=== PATIENT | male | born 1940 | race Caucasian/White ===

== ENCOUNTER 2024-01-08 19:21 | Observation (INO) | payer MEDICARE, SELFPAY ==
[2024-01-08] VITALS (7 sets, daily range): BP systolic 137–176; BP diastolic 67–122; BMI 22.8; BMI 22.7
[2024-01-08 08:29] LABS: % Basophils 0.3 % (0-2); % Eosinophils 0.9 % (0-6); % Immature Granulocytes 0.1 % (0-0.5); % Lymphocytes 11.4 % (20.5-51.1); % Monocytes 6.4 % (1.7-9.3); % Neutrophils 80.9 % (42.2-75.2); Absolute Eosinophils 0.1 10^3/uL (0-0.7); Absolute Lymphocytes 0.9 10^3/uL (1.2-3.4); Absolute Monocytes 0.5 10^3/uL (0.1-0.6); Absolute Neutrophils 6.4 10^3/uL (1.4-6.5); Hematocrit 40.7 % (39.0-52.0); Hemoglobin 14.1 g/dL (13.0-18.0); Mean Corp Hgb Conc. 34.6 g/dL (33.0-37.0); Mean Corpuscular Hgb 33.3 pg (27.0-31.0); Mean Platelet Volume 11.3 fL (7.4-10.4); Nucleated Red Blood Cells % 0 % (-); Platelet Count 165 10^3/uL (130-400); Red Blood Cell Count 4.24 10^6/uL (4.70-6.10); Red Cell Dist. Width 12.7 % (11.5-14.5); White Blood Cell Count 7.8 10^3/uL (4.8-10.8)
[2024-01-08 08:42] LABS: ALT (SGPT) 25 U/L (0-50); AST (SGOT) 25 U/L (17-59); Albumin 4.4 g/dl (3.5-5.0); Alkaline Phosphatase 74 U/L (38-126); Blood Urea Nitrogen 22 mg/dl (9-20); Carbon Dioxide 22 mmol/L (22-30); Chloride 103 mmol/L (98-107); Estimated Creatinine Clearance 68 ml/min; Glucose 125 mg/dl (70-99); Potassium 4.1 mmol/L (3.5-5.1); Sodium 140 mmol/L (135-145); Total Protein 6.5 g/dl (6.3-8.2); eGFR > 60.00
[2024-01-08 08:53] LABS: NT-proBNP 6080 pg/ml; Troponin I 0.019 ng/ml
--- NOTE | 2024-01-08 09:40 | ED.GENMED ---
History of Present Illness
General
Chief Complaint: Chest Pain
Time Seen by Provider: 01/08/24 07:44
History of Present Illness
History of Present Illness:
83-year-old male with history of hypertension, history of pacemaker, hyperlipidemia presenting to the emergency department for alleged chest pain. Patient presents from nursing facility where patient had been complaining of chest pain. However, on
arrival to the hospital patient denies any acute complaints. He denies any chest pain or difficulty breathing. He denies any abdominal pain. He denies any cough or fever. Patient does have some baseline dementia. No additional symptoms reported
at this time
Phy Exam
Physical Exam
Physical Exam:
General: Well-appearing, no clinical signs of dehydration, nontoxic and in no acute distress
HEENT: protecting airway
Neck: appears supple
CV: Normal heart rate, regular rhythm, no evidence of cyanosis
Resp: No accessory muscle use, no increased work of breathing, lungs clear to auscultation bilaterally
Abd: Soft and non-distended, no tenderness to palpation, normal bowel sounds
Extremities: No deformities, no swelling, no erythema, pulses and sensation intact
Neuro: alert, no focal neurologic deficit
: deferred
Rectal: deferred
Psych: Normal affect
Skin: Intact
Scores
Heart Score for Chest Pain Patients
STEMI patient?: No
History: Slightly or Non-Suspicious
ECG: Nonspecific Repolarization
Age: >/= 65 years
Risk Factors: >/= 3 Risk Factors or History of CAD
Troponin: >1 - <3 x Normal Limit
Heart Score for Chest Pain Patients: 6
Heart Score Risk: 20.3% MACE over next 6 weeks
Course
Orders/Labs/Results
Orders:
Orders
01/08/24 07:47
EKG [Electrocardiogram (*1)] Urgent
Reason for Study: Chest Pain
EKG- Treatment ONCE
01/08/24 08:20
Complete Blood Count/With Diff Urgent
Comprehensive Metabolic Panel Urgent
NT-proBNP Urgent
Troponin I Urgent
01/08/24 09:13
CR Chest - 2 Views Urgent
Comment:
Reason For Exam: chest pain
01/08/24 Lunch
Regular
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
01/08/24 11:41
Troponin I Urgent
01/08/24 14:33
Troponin I Urgent
01/08/24 15:46
CARDIOLOGY CONSULT Routine
Consulting Provider: Constantine Garza
Was physician already notified: Yes
Reason for consult: hx chest pain, increasing troponin
01/08/24 18:31
Admit/Transfer Patient As Directed
Co-Sign Provider:
Level of Care: Observation services
Assign to:: Telemetry
Physician / Group: Keyla Redman
Diagnosis: Chest pain r/o ACS
Reason for Telemetry: Chest Pain syndromes
Date to Stop Telemetry: 01/10/24
Time to Stop Telemetry: 11:00
01/08/24 18:32
PRN Pain Medication Management As Directed
May give lesser potent ordered pain med per pt: Yes
preference::
Protocol:: Medication orders for pain may be administered in a
manner that supports deferring to patient preference
when the pt is:
- Requesting an ordered lesser potent pain medication.
Least to most potent pain medications are defined
as: acetaminophen < NSAID < tramadol < opioids
(morphine, oxycodone, hydromorphone).
- Requesting a lesser dose of the same medication IF
ORDERED.
- Requesting a less intrusive route of administration
if both routes are prescribed by the provider (PO <
IV).
01/08/24 18:36
Code Status As Directed
Resuscitation Status: Do not resuscitate
Reached after discussion with pt or family/Healthcare POA: Yes
DNR Bracelet Application ONCE
01/08/24 19:09
COVID-19 Antigen Routine
Source: Nasal Swab
Troponin I Q6H
01/08/24 19:[address] Non Medication Order As Directed
Physician Order: apply medsitter
Above order entered?: Yes
01/08/24 20:10
Acetaminophen [Tylenol] 650 mg PO Q4HPRN PRN
Bisacodyl [Dulcolax] 10 mg RECTAL H02LIAL PRN
Docusate W/Senna [Senokot-S] 1 tablet PO BIDPRN PRN
HydrALAZINE [Apresoline] 5 mg IV Q4HPRN PRN
Metoprolol [Lopressor] 5 mg IV Q4HPRN PRN
Polyethylene Glycol Powder [Miralax] 17 grams PO DAILYPRN PRN
Risperidone Disintegrating [Risperdal M-Tab (Orally Disintegrating)] 0.25 mg PO BIDPRN PRN
01/08/24 20:10
Activity As Directed
Activity Level: With Assistance
Intake/ Output As Directed
Frequency: Per unit guidelines
Precautions As Directed
Type of Precautions: Other
Comment: fall precautions
Vital Signs As Directed
Frequency: Per unit guidelines
Weight As Directed
Frequency: Daily
Ot Eval And Treat Routine
Pt Eval And Treat Routine
Activity Level: With Assistance
01/08/24 20:26
Trazodone [Desyrel] 25 mg PO HSPRN PRN
01/08/24 20:30
Apixaban [Eliquis] 5 mg PO BID
Losartan [Cozaar] 50 mg PO BID
Metoprolol Xl [Toprol Xl] 50 mg PO BID
01/08/24 23:23
Troponin I Q6H
01/09/24 05:09
Basic Metabolic Panel IN AM
Cardiovascular Evaluation IN AM
Complete Blood Count/No Diff IN AM
Magnesium IN AM
01/09/24 08:00
Amlodipine [Norvasc] 5 mg PO DAILY
Aspirin Low Dose EC [Aspir Low (Enteric Coated)] 81 mg PO DAILY
Cholecalciferol (Vitamin D3) [VITAMIN D3 (cholecalciferol)] 50 mcg PO DAILY
FOLic ACID [Folvite] 0.8 mg PO DAILY
ISOSORBIDE MONOnitrate ER [Imdur (Extended Release)] 30 mg PO DAILY
Rosuvastatin Calcium [Crestor] 20 mg PO DAILY
Sertraline HCl [Zoloft] 50 mg PO DAILY
01/10/24 06:00
Basic Metabolic Panel IN AM
Complete Blood Count/No Diff IN AM
Magnesium IN AM
01/10/24 11:00
DC Protocol for Telemetry ONCE
01/11/24 06:00
Basic Metabolic Panel IN AM
Complete Blood Count/No Diff IN AM
Magnesium IN AM
01/12/24 06:00
Basic Metabolic Panel IN AM
Complete Blood Count/No Diff IN AM
Magnesium IN AM
01/13/24 06:00
Basic Metabolic Panel IN AM
Complete Blood Count/No Diff IN AM
Magnesium IN AM
01/14/24 06:00
Basic Metabolic Panel IN AM
Complete Blood Count/No Diff IN AM
Magnesium IN AM
01/15/24 06:00
Basic Metabolic Panel IN AM
Complete Blood Count/No Diff IN AM
Magnesium IN AM
Abnormal Lab Results
01/08/24 01/08/24 01/08/24
08:20 14:33 19:09
RBC 4.24 L 10^6/uL
(4.70-6.10)
MCV 96.0 H fL
(80.0-94.0)
MCH 33.3 H pg
(27.0-31.0)
MPV 11.3 H fL
(7.4-10.4)
Absolute Lymphs (auto) 0.9 L 10^3/uL
(1.2-3.4)
Neutrophils % 80.9 H %
(42.2-75.2)
Lymphocytes % 11.4 L %
(20.5-51.1)
BUN 22 H mg/dl
(9-20)
Glucose 125 H mg/dl
(70-99)
Troponin I 0.044 H* D ng/ml 0.050 H* ng/ml
01/08/24 08:20
01/08/24 08:20
Vital Signs
Initial and Last Documented VS:
Initial Vital Signs
Temp Pulse Resp BP Pulse Ox
97.5 F 69 26 145/89 99
01/08/24 07:49 01/08/24 07:49 01/08/24 07:49 01/08/24 07:49 01/08/24 07:49
Last Documented Vital Signs
Temp Pulse Resp BP Pulse Ox
98 F 61 16 133/60 97
01/09/24 11:12 01/09/24 11:12 01/09/24 11:12 01/09/24 11:12 01/09/24 11:12
MDM/Problems Addressed
MDM/Problems Addressed:
83-year-old male with history of hypertension, hyperlipidemia, pacemaker presenting to the emergency department for chest pain from nursing facility. Vital signs within normal limits.
On exam, patient well-appearing, no acute distress or discomfort. Patient is currently asymptomatic. Unremarkable cardiac and pulmonary exam. No focal abnormal lung sounds. No lower extremity edema. Unclear etiology of patient's visit. EKG
obtained, paced rhythm. Will interrogate to ensure no abnormal events. Will screen with laboratory analysis and chest x-ray imaging and to continue to closely monitor.
09:35 - Patient's BNP is elevated, however clear baseline. No signs of volume overload. Will screen with chest x-ray imaging. Troponin is detectable, however within normal limits. Will send second troponin given that patient is a limited
historian. Currently remains asymptomatic. Pacemaker was interrogated, no events or shocks.
11:50 -chest x-ray without any sign of pulmonary edema or cardiopulmonary disease. Second troponin has increased, however still within normal limits. Patient remains asymptomatic, however positive delta between troponin value discussed with
cardiology, will check a third troponin
15:20 -third troponin continues to rise. For this reason we will continue to monitor and trend troponins.
*EKG
Interpreted by ED Provider?: Yes
EKG Intrepretation Date: 01/08/24
EKG Intrepretation Time: 09:42
Interpretation: normal
Comparison EKG: no comparison EKG present
Heart Rate: 68
Rate: normal
Rhythm: PVC's and ventricular paced
[place]: normal axis
Ischemia: non-specific ST changes
*Critical Care Note
Total Time (30-74mins, 75-104mins- exclusive of procedures): Not Applicable
ED Attending Note
-
Portions of this chart may have been created with voice recognition software.� Occasional wrong word or��sound alike� substitutions may have occurred due to the inherent limitations of voice recognition software.
Discharge Plan
Departure
Patient Disposition: Admit
Date of Disposition: 01/08/24
Time of Disposition: 15:26
Presentation/result/management discussed w/ accepting MD/DO: Hospitalist
Patient with high blood pressure during this ER visit?: No
Condition: Good
Discharge Problem:
Chest pain
Interventions
Interventions:
*Risk Screen - Suicide Last Done: 01/08/24 07:49
*General Assessment Last Done: 01/08/24 07:53
*Neglect/Abuse Screening Last Done: 01/08/24 07:53
ED- Fall Risk Assessment Last Done: 01/08/24 07:53
*ED COVID-19 Vaccine History Last Done: 01/08/24 20:27
*Nursing Disposition Last Done: 01/08/24 20:19
ED- Cardiac Assessment Last Done: 01/08/24 07:53
Discharge Date and Time
Discharge Date/Time: 01/08/24 20:20
[2024-01-08 12:12] LABS: Troponin I 0.031 ng/ml
[2024-01-08 15:20] LABS: Troponin I 0.044 ng/ml
--- NOTE | 2024-01-08 15:42 | HPS.HSE ---
Family Physician
-
Family Physician: Danielle Soto MD
Chief Complaint
-
Chest pain
History of Present Illness
83M afib Eliquis CAD CABG stents Ischemic Cardiomyopathy CHF s/p AICD/ppm HTN Dementia from [facility] presents for evaluation chest pain. Poor historian, POA Luci at bedside providing history. Reportedly patient was not
himself this morning, reporting chest pain, diaphoretic, shaking. On arrival in ED, however, patient denied any acute complaints including chest pain. VSS. Labs were notable for elevated BNP 6080 (exam Euvolemic) and initially normal troponins
that trended elevated 0.044. Patient consistently chest pain free during ED evaluation
Medical History
Past Medical History
Past Medical History: Reports Other (as above)
Past Surgical History: Reports Other (as above)
Social History
Tobacco: Non-smoker
Alcohol: None
Drug: None
Personal:
Living: Other ([facility])
Employment: Retired
Family History
Family History: Not pertinent (reviewed)
Allergies / Home Medications
Allergies reflects when Allergies were last updated in [email or web address].
Home Medications with original date entered in [email or web address]
Allergy/Medication List:
Allergies
Allergy/AdvReac Type Severity Reaction Status Date / Time
No Known Allergies Allergy Verified 12/10/22 11:28
Home Medications
amlodipine 5 mg tablet 5 mg PO DAILY Blood Pressure 03/16/22
folic acid 800 mcg tablet 0.8 mg PO DAILY Supplement 03/16/22
losartan 100 mg tablet 100 mg PO DAILY Blood Pressure 03/16/22
metoprolol succinate 100 mg tablet,extended release 24 hr 100 mg PO DAILY Heart Failure 03/16/22
rosuvastatin 20 mg tablet 20 mg PO DAILY High Cholesterol 03/16/22
apixaban 5 mg tablet (Eliquis) 5 mg PO BID 01/08/24
aspirin 81 mg tablet,delayed release 81 mg PO DAILY Blood Clot Prevention/Tx 01/08/24
cholecalciferol (vitamin D3) 50 mcg (2,000 unit) capsule (Vitamin D3) 50 mcg PO DAILY Supplement 01/08/24
isosorbide mononitrate 30 mg tablet,extended release 24 hr 30 mg PO DAILY ANGINA 01/08/24
sertraline 50 mg tablet 50 mg PO DAILY Depression 01/08/24
Review of Systems
-
A 12 point ROS was completed and negative except as noted: Yes
Constitutional: Reports Sleep Disturbance (as below)
Physical Exam
Vital Signs
Vital Signs
Temp Pulse Resp BP Pulse Ox
97.5 F 61 19 164/92 99
01/08/24 07:49 01/08/24 10:45 01/08/24 10:45 01/08/24 10:00 01/08/24 10:45
Physical Exam
General: Other (as below)
Laboratory Results
-
01/08/24 08:20
01/08/24 08:20
Laboratory Results
Total Bilirubin 1.0 mg/dl (0.2-1.3) 01/08/24 08:20
AST 25 U/L (17-59) 01/08/24 08:20
ALT 25 U/L (0-50) 01/08/24 08:20
Alkaline Phosphatase 74 U/L (38-126) 01/08/24 08:20
Troponin I 0.044 ng/ml H* D 01/08/24 14:33
Impression/Plan
-
ROS
General: Denies fever chills night sweats unexpected weight loss
Neuro: Denies seizure shaking loss of consciousness dizziness vertigo
Psych: denies depression hallucinations confusion manic episodes
Endocrine: Denies polyuria polydipsia polyphagia heat/cold intolerance
HEENT: Denies blindness visual disturbances epistaxis
Pulmonary: denies coughing hemoptysis sneezing sob dyspnea on exertion
Cardiovascular: denies chest pain palpitations leg swelling
Hematology: denies signs symptoms of anemia easy bruising/bleeding
Gastrointestinal: denies nausea vomiting diarrhea constipation hematemesis hematochezia melena
Genito-Urinary: denies retention incontinence dysuria
Musculoskeletal: denies joint pain weakness
Dermatology: denies rash laceration bruising
Physical Exam
General: No pallor, cyanosis, or jaundice.
HEENT: Throat clear. PERRLA Normocephalic atraumatic hard of hearing
NECK: Supple. No JVD Carotid Bruits
RESPIRATORY: Lungs clear to auscultation. No crackles wheezes stridor
CVS: S1, S2 normal. RRR. No murmur, rub or gallop. palpable right sided cardiac device
ABDOMEN: Soft, non-tender. No distension. BS+/normal.
EXTREMITIES: No peripheral cyanosis or edema.
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 Pleasantly confused cooperative conversant. Memory issues noted (has previously forgotten his birthday per at bedside)
IMPRESSION:
83M afib Eliquis CAD CABG stents Ischemic Cardiomyopathy CHF s/p AICD/ppm HTN Dementia from [facility] unit presents for evaluation chest pain. Poor historian, TRESA Luci at bedside providing history. Reportedly patient was not
himself this morning, reporting chest pain, diaphoretic, shaking. On arrival in ED, however, patient denied any acute complaints including chest pain. VSS. Labs were notable for elevated BNP 6080 (exam Euvolemic) and initially normal troponins
that trended elevated 0.044. Patient consistently chest pain free during ED evaluation
PLAN:
#Chest pain r/o ACS
#Troponin elevation suspect non-mi related
tele observation
currently chest pain free
trend troponin to peak
cardio eval requested, follows Dr. Hunter Epperson
#hx afib
#CAD CABG stents
#Ischemic Cardiomyopathy
#CHF s/p AICD/ppm
#HTN
cont home Eliquis ASA
missed morning meds, Metoprolol XL 100 mg daily and Losartan 100 mg daily both switched to 50 mg BID for now with holding parameters
cont home Amlodipine
#Dementia
#Depression/Anxiety
Cont sertraline
risperdal 0.25mg BIDPRN agitation
Trazodone 25 mg prn sleep
Avoid benadryl/melatonin/ativan likely to worsen confusion delirium dementia patients
medsitter
fall precautions
PT/OT
dvt ppx Eliquis
DNR as patient's TRESA Verma and POL
I spent a total of 76 minutes with the patient or on the floor. More than 50% of this time involved counseling and coordination of care.
[2024-01-08 19:33] LABS: COVID-19 Antigen Negative (Negative)
[2024-01-08] MEDS: COZAAR 50 MG PO (21:47)
[2024-01-08] MEDS: ELIQUIS 5 MG PO (21:47)
[2024-01-08] MEDS: TOPROL XL 50 MG PO (21:48)
[2024-01-08 23:54] LABS: Troponin I 0.048 ng/ml
[2024-01-09] VITALS (7 sets, daily range): BP systolic 129–156; BP diastolic 60–91; PULSE 61; O2SAT 99; BMI 22.7
[2024-01-09 05:35] LABS: Hematocrit 43.6 % (39.0-52.0); Hemoglobin 15.1 g/dL (13.0-18.0); Mean Corp Hgb Conc. 34.6 g/dL (33.0-37.0); Mean Corpuscular Hgb 34.8 pg (27.0-31.0); Mean Corpuscular Volume 100.5 fL (80.0-94.0); Mean Platelet Volume 11.4 fL (7.4-10.4); Platelet Count 162 10^3/uL (130-400); Red Blood Cell Count 4.34 10^6/uL (4.70-6.10); Red Cell Dist. Width 12.8 % (11.5-14.5); White Blood Cell Count 8.5 10^3/uL (4.8-10.8)
[2024-01-09 05:57] LABS: Blood Urea Nitrogen 20 mg/dl (9-20); Calcium 10.1 mg/dl (8.4-10.2); Carbon Dioxide 23 mmol/L (22-30); Chloride 102 mmol/L (98-107); Estimated Creatinine Clearance 61 ml/min; Glucose 107 mg/dl (70-99); HDL Cholesterol 54 mg/dl; LDL Cholesterol, Calculated 64 mg/dl; Potassium 4.1 mmol/L (3.5-5.1); Sodium 143 mmol/L (135-145); Total Cholesterol 134 mg/dl (50-199); Triglyceride 84 mg/dl (10-149); Very Low Density Lipoprotein 16 mg/dl (0-30); eGFR > 60.00
--- NOTE | 2024-01-09 07:16 | W.PN.HOSP.TC ---
Today's Communication/Plan
-
Imdur increased by cardiology
Discharge today
Assessment / Plan
Assessment / Plan
83M afib Eliquis CAD CABG stents Ischemic Cardiomyopathy CHF s/p AICD/ppm HTN Dementia from [facility] presents for evaluation chest pain. Poor historian, POCristian Luci at bedside providing history. Reportedly patient was not
himself this morning, reporting chest pain, diaphoretic, shaking. On arrival in ED, however, patient denied any acute complaints including chest pain. VSS. Labs were notable for elevated BNP 6080 (exam Euvolemic) and initially normal troponins
that trended elevated 0.044. Patient consistently chest pain free during ED evaluation
#Chronic intermittent chest pain
#Troponin elevation suspect non-mi related
Follows Dr. Hunter Epperson
Appreciate cardiology input, recommend increasing Imdur from 30 mg daily to 60 mg daily
Cleared by cardiology for discharge, follow-up with cardiology in the office
#hx afib
#CAD CABG stents
#Ischemic Cardiomyopathy
#CHF s/p AICD/ppm
#HTN
Continue home Eliquis ASA
Continue metoprolol XL 100 mg daily and Losartan 100 mg daily both switched to 50 mg BID for now with holding parameters
Continue home Amlodipine
#Dementia
#Depression/Anxiety
Cont sertraline
risperdal 0.25mg BIDPRN agitation
Trazodone 25 mg prn sleep
Avoid benadryl/melatonin/ativan likely to worsen confusion delirium dementia patients
medsitter
fall precautions
PT/OT
dvt ppx Eliquis
DNR as patient's TRESA Verma and POL
Physical Exam
General: No acute distress
HEENT: Normocephalic, Atraumatic, EOMI, MMM
Respiratory: Clear to Auscultation bilaterally
Cardiac: Normal S1/S2, Regular Rate and Rhythm
GI: Soft, Nontender, Nondistended, Normal Bowel Sounds
Extremities: No Clubbing, Cyanosis, or Edema
Neuro: Pleasantly confused
Psych: Calm, Cooperative
Anticipated Discharge: Today
Subjective/Interval History
-
Date of Service: January 09, 2024
Patient reports intermittent right-sided chest pain. No fever, no vomiting.
Objective Data
-
Labs:
Laboratory Results
01/09/24
05:09
WBC 8.5
Hgb 15.1
Hct 43.6
Plt Count 162
Sodium 143
Potassium 4.1
Chloride 102
Carbon Dioxide 23
BUN 20
Creatinine 1.0
Glucose 107 H
Calcium 10.1
Vital Signs:
Vital Signs
Temp Pulse Resp BP Pulse Ox
97.2 F 62 16 147/85 98
01/09/24 04:11 01/09/24 04:11 01/09/24 04:11 01/09/24 04:11 01/09/24 04:11
I&O
01/08/24 01/09/24 01/10/24
06:59 06:59 06:59
Intake Total 240 / 240
Balance 240 / 240
[2024-01-09] MEDS: FOLVITE 0.8 MG PO (09:18)
[2024-01-09] MEDS: IMDUR (EXTENDED RELEASE) 30 MG PO (09:19)
[2024-01-09] MEDS: CRESTOR 20 MG PO (09:19)
[2024-01-09] MEDS: NORVASC 5 MG PO (09:19)
[2024-01-09] MEDS: TOPROL XL 50 MG PO (09:19)
[2024-01-09] MEDS: ELIQUIS 5 MG PO (09:20)
[2024-01-09] MEDS: COZAAR 50 MG PO (09:20)
[2024-01-09] MEDS: VITAMIN D3 (cholecalciferol) 50 MCG PO (09:21)
[2024-01-09] MEDS: ZOLOFT 50 MG PO (09:21)
[2024-01-09] MEDS: ASPIR LOW (ENTERIC COATED) 81 MG PO (09:21)
--- NOTE | 2024-01-09 09:53 | PTOTSP ---
pt currently demonstrates ability to complete simple ADLs, functional transfers, ambulation with supervision assistance. pt requires cues to initiate tasks, attend to tasks, which is probably close to baseline. pt is also very talkative during the
session. no acute OT needs identified at this time, will sign off.
--- NOTE | 2024-01-09 10:44 | CON.CAR ---
Addendum entered and electronically signed by Constantine Garza MD 01/09/24 13:02:
I saw and examined the patient.
The PRETZEL TWISTER or PA's note was reviewed and I agree with the note.
Comment: General: Awake and confused
Neck: Supple, no JVD, HJR, carotids +2 B/L, no bruits bilaterally.
Heart: Non displaced PMI, RRR, no murmurs, No S3, S4, no rubs.
Lungs: Scattered rhonchi
Abdomen: Normal bowel sounds, soft, non-tender, non-distended.
Extremities: No clubbing, cyanosis or edema bilaterally.
Neuro: Awake and confused
Kemal has a history of CAD status post CABG and PCI while living in [facility], cardiomyopathy with ejection fraction 40-45%, permanent A-fib on chronic Eliquis, hypertension, chronic chest pain. Patient is a poor historian and according to
has chronic chest pain. Patient came to the ER troponins were minimally elevated and was admitted. He is without complaints at present but is confused.
Discussed with patient's . Will continue to treat conservatively. Will increase Imdur and continue Toprol. Stable cardiology status for discharge to nursing facility
Original Note:
Consultation
Consultation Request
Date/Time Consultation Requested: 01/08/24 at 1546
Date/Time Consultation Performed: 01/09/24 at 1047
Requesting Provider: Dr. Perez
Performing Provider: Dr. Garza
Reason for Consultation: Chest pain
Medical History
-
History of Present Illness:
Patient came to ER yesterday morning with complaints of chest pain and was admitted with elevating troponin with consultation to cardiology. Patient lives in the [facility] care section of [facility], but his is in independent living. I called
and talked to his and she reports that patient has chest pain on a daily basis and often grabs to his chest and grabs that his implanted defibrillator and says he has pain. She reports that his episode of pain yesterday happened when she was
not present and that nursing staff sent him to ER. Upon arrival to ER patient said that he did not have chest pain and denied ever having chest pain. 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 In ER his
initial troponin was normal and a second troponin was normal, but was higher than the previous and this prompted the admission. His troponin peaked at 0.05 and trended down. No chest pain throughout this admission. EKG is a paced rhythm. He has
a Biotronik DC ICD in place that was implanted when he is to follow with a manufacturer's representative in [place] around the time of his CABG and PCI. He had a generator change here at 03/2022. No events on his ICD check in the ER yesterday and he is 100%
atrial fibrillation underlying with known permanent atrial fibrillation and is chronically on Eliquis 5 mg BID. Of note back in 04/2023 patient was sent for a stress test for chest pain as noted above. That stress test was abnormal and he was
started on Imdur ER 30 mg daily at that time and it is not clear if he has had much improvement in his daily chest pain since then
PMH:
Abnormal Lexiscan stress test 04/21/23
CAD s/p CABG and PCI while living in [facility]
ICM EF 40-45% by echo 02/18/23
Permanent Afib
Chronic Eliquis OAC
HTN
Past Medical History
Past Medical History: Other (in [facility])
Past Surgical History: Cardiac (CABG and PCI in [place], s/p Biotronik DC ICD with generator change 03/2022) and Other (pyloric stenosis surgery in [place])
Social History
Tobacco: Former Smoker (used to smoke 3 ppd)
Alcohol: None
Drug: None
Personal:
Living: Other (now in the memory care section of [facility])
Family History
Family History: CAD
Allergies / Home Medications
Allergy/AdvReac Type Severity Reaction Status Date / Time
No Known Allergies Allergy Verified 12/10/22 11:28
�Medication �Instructions �Recorded �Confirmed �Type
amlodipine 5 mg tablet 5 mg PO DAILY Blood Pressure 03/16/22 01/08/24 History
folic acid 800 mcg tablet 0.8 mg PO DAILY Supplement 03/16/22 01/08/24 History
losartan 100 mg tablet 100 mg PO DAILY Blood Pressure 03/16/22 01/08/24 History
metoprolol succinate 100 mg 100 mg PO DAILY Heart Failure 03/16/22 01/08/24 History
tablet,extended release 24 hr
rosuvastatin 20 mg tablet 20 mg PO DAILY High Cholesterol 03/16/22 01/08/24 History
apixaban 5 mg tablet (Eliquis) 5 mg PO BID 01/08/24 01/08/24 History
aspirin 81 mg tablet,delayed 81 mg PO DAILY Blood Clot 01/08/24 01/08/24 History
release Prevention/Tx
cholecalciferol (vitamin D3) 50 50 mcg PO DAILY Supplement 01/08/24 01/08/24 History
mcg (2,000 unit) capsule (Vitamin
D3)
isosorbide mononitrate 30 mg 30 mg PO DAILY ANGINA 01/08/24 01/08/24 History
tablet,extended release 24 hr
sertraline 50 mg tablet 50 mg PO DAILY Depression 01/08/24 01/08/24 History
Review of Systems
-
History Source: Patient and Family (talked with by phone)
All other systems: Negative unless noted
Physical Exam
Vital Signs
Temp Pulse Resp BP Pulse Ox
97.9 F 63 16 129/91 96
01/09/24 08:03 01/09/24 09:20 01/09/24 08:03 01/09/24 09:20 01/09/24 08:03
GEN: NAD. Confused and pulled stethoscope off chest during exam, but then allowed exam to continue when stethoscope placed back on chest
HEENT: EOMI, MMM
LUNGS: Clear anterolaterally with poor inspiratory effort
CV: Reg, S1/S2, no murmur
ABD: soft, BS+, NT, ND
EXT: No clubbing, cyanosis, lesions or edema B/L. +2 DP/PT/radial pulses B/L
NEURO: Gross non-focal
SKIN: Warm, dry and pink. No rash
Lab Results
01/09/24 05:09
01/09/24 05:09
Troponin I 0.048 ng/ml H* 01/08/24 23:23
Vib-R-Nifkltnbeqg Pept 6080 pg/ml 01/08/24 08:20
Impression / Plan
-
PCP: Dr. Soto
Cardiology: Dr. Viktor Brown
Impression:
Chest pain
Elevated Troponin
Abnormal Lexiscan stress test 04/21/23
CAD s/p CABG and PCI while living in [facility]
ICM EF 40-45% by echo 02/18/23
Permanent Afib
Chronic Eliquis OAC
HTN
Lexiscan nuclear stress test 04/21/2023: Medium sized area of mildly decreased perfusion that is mildly reversible in the basal anterolateral, basal inferolateral, basal inferior, mid anterolateral, mid inferolateral, mid inferior apical lateral,
apex and apical inferior segments consistent with infarction with residual ischemia in the inferolateral and anterolateral sibley
Echo 02/18/2023: EF 40 to 45%, mild apical hypokinesis, stage III diastolic dysfunction, normal RV size and function, mild MR, moderate eccentric TR with PAP 42 mmHg
Plan:
-Patient came to ER yesterday morning with complaints of chest pain and was admitted with elevating troponin with consultation to cardiology. Patient lives in the [facility] care section of [facility], but his is in independent living. I called
and talked to his and she reports that patient has chest pain on a daily basis and often grabs to his chest and grabs that his implanted defibrillator and says he has pain. She reports that his episode of pain yesterday happened when she was
not present and that nursing staff sent him to ER. Upon arrival to ER patient said that he did not have chest pain and denied ever having chest pain. 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 In ER his
initial troponin was normal and a second troponin was normal, but was higher than the previous and this prompted the admission. His troponin peaked at 0.05 and trended down. No chest pain throughout this admission. EKG is a paced rhythm. He has
a Biotronik DC ICD in place that was implanted when he is to follow with a manufacturer's representative in [place] around the time of his CABG and PCI. He had a generator change here at 03/2022. No events on his ICD check in the ER yesterday and he is 100%
atrial fibrillation underlying with known permanent atrial fibrillation and is chronically on Eliquis 5 mg BID. Of note back in 04/2023 patient was sent for a stress test for chest pain as noted above. That stress test was abnormal and he was
started on Imdur ER 30 mg daily at that time and it is not clear if he has had much improvement in his daily chest pain since then.
-Called and talked with patient's 01/09/24. Chest pain is almost daily for patient. Stress test was abnormal 04/2023, but patient's wishes to pursue medical management. Will increase outpatient dose of Imdur ER to 60 mg daily.
-Cont usual doses of amlodipine 5 mg daily, losartan 50 mg BID and Toprol XL 100 mg daily (although ordered as 50 mg BID this admission).
-Cont aspirin 81 mg daily
-Patient with known permanent Afib that is rate controlled. Cont Eliquis 5 mg BID (age 83, Cre 1.0, wt 75.835 kg)
-Updated patient's egg caser and attending hospitalist that patient's would like to drive him home today and that patient is stable for d/c from a cardiac standpoint.
-77 minutes in face to face time and with chart prep, coordinating with CM and hospitalist attending
[2024-01-09] MEDS: RISPERDAL M-TAB (ORALLY DISINTEGRATING) 0.25 MG PO (11:04)
--- NOTE | 2024-01-09 12:44 | CM ---
Addendum entered by Tanja Ibarra 01/09/24 13:00:
Plan for dc today
Update to spouse and [facility]
Original Note:
CM spoke with Josette Virgil/[facility] at [facility]
Pt is a LTC resident in the memory unit
He ambulates with supervision for correct use of his specialized Parkinsons dementia WW
He requires coaxing and cueing for most ADLs, 1 person assist with back and LEs
PCP- Danielle Soto
Rx- [facility]
PT/OT following- clinicals reviewed
Pt accepted back for admission to the [facility] on dc
Referral to [facility] per request
Call with spouse- ALEXANDER verbally completed
Copy left bedside
Discussion with Rosalind/cardio- signed off
Awaiting dc determination
Referral made to [facility]
Discharge Disposition- return to the [facility] memory care with [facility]- spouse will transport
Phone- [phone] before 3pm/Hanna after 3pm/Yulissa Fax- [phone]
--- NOTE | 2024-01-09 13:08 | VNURNOTE ---
Home Health Liaison spoke to spouse Luci to discuss [facility] nurse/therapy, visits, schedule and homebound status. She is agreeable and understands that visits at home will be 2-3 x per week to assess and teach medical management. [facility] provided spouse
with contact information. She is aware that [facility] will contact them for start of care in 1-2 days after discharge from . She is agreeable to be present for the start of care visit to sign paperwork. [facility] referral completed in [facility].
--- NOTE | 2024-01-09 13:37 | W.DCSUMMARY ---
Discharge Summary
Discharge Data
Date of Admission: 01/08/24
Date of Discharge: 01/09/24
-
Pending Results: No
Hospital Course
Discharge diagnosis:
Chronic chest pain
Coronary artery disease
Permanent atrial fibrillation on Eliquis
Essential hypertension
Ischemic cardiomyopathy
Dementia
Depression/anxiety
Consults: Cardiology
Hospital course:
83-year-old male with a past medical history of coronary artery disease status post CABG and PCI, atrial fibrillation on Eliquis, hypertension, and dementia was placed in observation for chronic chest pain. Patient had a mildly elevated troponin.
He was seen in conjunction with cardiology. Cardiology recommends increasing his Imdur from 30 mg daily to 60 mg daily. Patient is medically stable and cleared by cardiology for discharge. He needs to follow-up with cardiology in the office as
scheduled, as well as his primary care doctor in 1 week.
Disposition: [facility] memory care unit with [facility]
Discharge planning: Required 34 minutes
Discharge Plan
-
Patient Disposition: Home with Home Care
Discharge Diagnosis/Procedures: Chest pain
Condition: Fair
Diet: Low Fat and Low Cholesterol
Activity: As tolerated
Referrals:
Danielle Soto MD [Family Provider] - in one week
Viktor Brown MD [Active] - 02/28/24 9:20 am (You have an appt to see Dr. Viktor Brown at the [place] office on 02/28/24 at 9:20 AM. Please call [phone] if you need to reschedule.)
Additional Discharge Medication Instructions: -Increase Imdur ER (isosorbide mononitrate) to 60 mg (one 60 mg tablet or two 30 mg tablets) once a day
Prescriptions:
New
isosorbide mononitrate 60 mg tablet extended release 24 hr
60 mg PO DAILY Qty: 30 11RF
Continued
metoprolol succinate 100 mg Tablet Extended Release 24 Hr
100 mg PO DAILY
amlodipine 5 mg Tablet
5 mg PO DAILY
losartan 100 mg Tablet
100 mg PO DAILY
folic acid 800 mcg Tablet
0.8 mg PO DAILY
rosuvastatin 20 mg Tablet
20 mg PO DAILY
aspirin 81 mg Tablet,Delayed Release (Dr/Ec)
81 mg PO DAILY
sertraline 50 mg Tablet
50 mg PO DAILY
cholecalciferol (vitamin D3) [Vitamin D3] 50 mcg (2,000 unit) Capsule
50 mcg PO DAILY
Eliquis 5 mg Tablet
5 mg PO BID
Discontinued
isosorbide mononitrate [Imdur] 30 mg Tablet Extended Release 24 Hr
30 mg PO DAILY
Discharge Orders:
Discharge Patient (As Directed); Ordered 01/09/24
Ordered By: Willis Perez
Discharge Date and Time
Discharge Date/Time: 01/09/24 15:15
Print Language: GERMAN
== END 2024-01-09 15:15 | disposition home health service (06) ==
LOC: 3 WEST ACU 19:21
PROVIDERS: Physician Assistant Medical; ADMITTING PHYSICIAN Internal Medicine; ATTENDING PHYSICIAN Family Medicine; CONSULT PHYSICIAN Internal Medicine Cardiovascular Disease; EMERGENCY PHYSICIAN Student in an Organized Health Care Education/Training Program; FAMILY PHYSICIAN Student in an Organized Health Care Education/Training Program
DX: R07.9 Chest pain, unspecified (principal); G89.29 Other chronic pain; I11.0 Hypertensive heart disease with heart failure; I25.10 Atherosclerotic heart disease of native coronary artery without angina pectoris; I25.5 Ischemic cardiomyopathy; F03.911 Unspecified dementia, unspecified severity, with agitation; F03.94 Unspecified dementia, unspecified severity, with anxiety; F03.93 Unspecified dementia, unspecified severity, with mood disturbance; F32.A Depression, unspecified; R79.89 Other specified abnormal findings of blood chemistry; E78.5 Hyperlipidemia, unspecified; I49.3 Ventricular premature depolarization; I48.21 Permanent atrial fibrillation; Z66 Do not resuscitate; Z95.1 Presence of aortocoronary bypass graft; Z82.49 Family history of ischemic heart disease and other diseases of the circulatory system; Z95.5 Presence of coronary angioplasty implant and graft; Z87.891 Personal history of nicotine dependence; Z95.810 Presence of automatic (implantable) cardiac defibrillator; Z79.01 Long term (current) use of anticoagulants; Z11.52 Encounter for screening for COVID-19
CPT/HCPCS: 93280; 71046; 80048; 80053; 80061; 83735; 83880; 84484; 85025; 85027; 87811; 93005; 97116; 97162; 97165; 99285; G0378

== ENCOUNTER → 2024-10-23 11:26 | Outpatient (REF) | payer MEDICARE, SELFPAY ==
[2024-10-23 12:31] LABS: % Basophils 0.3 % (0-2); % Eosinophils 1.1 % (0-6); % Immature Granulocytes 0.1 % (0-0.5); % Lymphocytes 11.8 % (20.5-51.1); % Monocytes 7.8 % (1.7-9.3); % Neutrophils 78.9 % (42.2-75.2); Absolute Eosinophils 0.1 10^3/uL (0-0.7); Absolute Lymphocytes 0.9 10^3/uL (1.2-3.4); Absolute Monocytes 0.6 10^3/uL (0.1-0.6); Hemoglobin 14.8 g/dL (13.0-18.0); Mean Corp Hgb Conc. 33.6 g/dL (33.0-37.0); Mean Corpuscular Hgb 31.9 pg (27.0-31.0); Mean Corpuscular Volume 94.8 fL (80.0-94.0); Mean Platelet Volume 12.2 fL (7.4-10.4); Nucleated Red Blood Cells % 0 % (-); Platelet Count 156 10^3/uL (130-400); Red Blood Cell Count 4.64 10^6/uL (4.70-6.10); Red Cell Dist. Width 13.4 % (11.5-14.5); White Blood Cell Count 7.6 10^3/uL (4.8-10.8)
[2024-10-23 13:36] LABS: ALT (SGPT) 22 U/L (0-50); AST (SGOT) 23 U/L (17-59); Alkaline Phosphatase 81 U/L (38-126); Blood Urea Nitrogen 31 mg/dl (9-20); Calcium 9.8 mg/dl (8.4-10.2); Carbon Dioxide 21 mmol/L (22-30); Chloride 107 mmol/L (98-107); Glucose 110 mg/dl (70-99); Potassium 4.9 mmol/L (3.5-5.1); Sodium 140 mmol/L (135-145); Total Bilirubin 0.8 mg/dl (0.2-1.3); Total Protein 7.4 g/dl (6.3-8.2); eGFR > 60.00
[2024-10-23 15:05] LABS: TSH 2.93 uIU/ml (0.47-4.68)
[2024-10-23 16:11] LABS: Ferritin 19.2 ng/ml (17.9-464.0)
[2024-10-23 16:26] LABS: Vitamin B12 387 pg/ml (239-931)
[2024-10-24 08:30] LABS: Glycohemoglobin (HgbA1c) 6.5 % (4.0-5.6)
== END ==
LOC: OLABPG 11:26
PROVIDERS: ATTENDING PHYSICIAN Nurse Practitioner Gerontology
DX: I48.0 Paroxysmal atrial fibrillation (principal); Z79.01 Long term (current) use of anticoagulants; I10 Essential (primary) hypertension; F02.84 Dementia in other diseases classified elsewhere, unspecified severity, with anxiety; E78.5 Hyperlipidemia, unspecified; R01.1 Cardiac murmur, unspecified; F41.9 Anxiety disorder, unspecified; D64.9 Anemia, unspecified; R73.09 Other abnormal glucose; F03.90 Unspecified dementia, unspecified severity, without behavioral disturbance, psychotic disturbance, mood disturbance, and anxiety
CPT/HCPCS: 36415; 80053; 82607; 82728; 83036; 84443; 85025

== ENCOUNTER → 2024-11-27 11:22 | Outpatient (REF) | payer MEDICARE, SELFPAY ==
[2024-11-27 12:22] LABS: Hematocrit 40.2 % (39.0-52.0); Hemoglobin 13.3 g/dL (13.0-18.0); Mean Corp Hgb Conc. 33.1 g/dL (33.0-37.0); Mean Corpuscular Volume 95.3 fL (80.0-94.0); Nucleated Red Blood Cells % 0 % (-); Platelet Count 149 10^3/uL (130-400); Red Cell Dist. Width 13.6 % (11.5-14.5)
[2024-11-27 13:00] LABS: Glycohemoglobin (HgbA1c) 6.5 % (4.0-5.6)
== END ==
LOC: OLABPG 11:22
PROVIDERS: ATTENDING PHYSICIAN Nurse Practitioner Gerontology
DX: D72.810 Lymphocytopenia (principal); F03.90 Unspecified dementia, unspecified severity, without behavioral disturbance, psychotic disturbance, mood disturbance, and anxiety; R73.9 Hyperglycemia, unspecified; Z79.01 Long term (current) use of anticoagulants
CPT/HCPCS: 36415; 83036; 85025